=== PATIENT | female | born 1945 | race Caucasian/White ===

== ENCOUNTER → 2016-08-12 | Outpatient (CLI) | payer OTHER ==
[~2016-08-12] MED LIST: ACETAMINOPHEN PO; AMLODIPINE BESYL5 MG PO; DOCUSATE SODIU100 MG PO; EPIPEN0.3 MG/0.1 IM; EVISTA60 MG PO; FLAGYL PO; FLAX SEED OIL1000 M2 PO; FLEXERIL10 MG PO; FUROSEMIDE40 MG PO; HCTZ PO; HYDROCHLOROTHIA25 MG PO; KCL PO; LEVAQUIN PO; LOPID600 MG PO; LOPROX90 GM TOP; MEDI-PATCH WIT1 EACH TOP; MICRO-K PO; MICRO-K10 ME2 PO; MULTIPLE VITAM1 EAC1 PO; PERCOCET5/325 PO; POTASSIUM CHLO10 MEQ PO; PREMARIN0.3 MG PO; PROBIOTIC1 EAC1 PO; PROTONIX PO; TOPROL XL PO; TOPROL XL50 MG PO; TRAMADOL HCL50 M2 PO; TYLENOL325 M1 PO; VIT B-12 PO; VIT B12; VITAMIN D2000 UNIT PO; VOLTAREN75 MG PO; ZETIA PO
--- NOTE | ~2016-08-12 | MR113 ---
[facility] A Service of [facility] RADIOLOGY TEXT RESULTS PATIENT: PATRICIA KHAN LOCATION: [facility] : [birth year] UNIT #: [id number] AGE: [address]: Martinez Celestin MD SEX: F ORDER DR: [id number] [facility] [address] [place], [place] [address] [id number] O MR#: [id number] Acc #: [id number] NAME: PATRICIA KHAN. : 1945 SEX: F STUDY DATE/TIME: 08/12/2016 9:24 UNIT: [facility] ROOM: STUDY DESCRIPTION: MR Lumbar Wo Contrast Attending Physician: Martinez Celestin M.D. Referring Physician: Martinez Celestin M.D. Ordering Physician: Martinez Celestin M.D. Primary Care Physician: Martinez Celestin M.D. MRI CENTER REPORT This report is preliminary unless electronic signature is present. EXAM Lumbar spine MRI without contrast. DATE OF STUDY 08/12/2016 COMPARISON STUDIES Images from a CT abdomen and pelvis dated 03/23/2014. PROCEDURE Routine unenhanced lumbar spine MRI. CLINICAL HISTORY Low-back pain for 4 years. No leg pain. FINDINGS There is a grade 1 anterolisthesis at 4-5 and at 5-1. There is no convincing pars defect at either level. There is degenerative marrow signal change around the 5-1 disc, but bone marrow signal is otherwise normal. Alignment appears unchanged when compared to the CT abdomen and pelvis of 03/23/2014. The distal cord and conus are normal in position and appearance and the paraspinous tissues are unremarkable. At 1-2, there is no canal or foraminal stenosis. At 2-3, slight discogenic and facet degenerative change but no canal stenosis and borderline if any bilateral foraminal narrowing. At 3-4, there is disc and endplate change and facet arthropathy. There is mild canal narrowing and bpspskaiqy-ma-noad right and mild left foraminal narrowing. [facility] A Service of [facility] RADIOLOGY TEXT RESULTS PATIENT: PATRICIA KHAN LOCATION: [facility] : [birth year] UNIT #: [id number] AGE: [address]: Martinez Celestin MD SEX: F ORDER DR: At 4-5, there is anterolisthesis, pseudodisc bulge, facet arthropathy, and mild canal stenosis, and mild to ntbf-di-kocmersb right and mild left foraminal stenosis. At 5-1, there is no canal stenosis but there is moderate right and txkbcyma-bw-tehdcv left foraminal distortion and narrowing. IMPRESSION Degenerative anterolisthesis at 4-5 and 5-1. There is no change in alignment since the CT of 03/23/2014. There are some areas of degenerative foraminal narrowing, see above for eqpnf-iz-jlaxo details. Dictated by... Filemon Mckenna M.D. THIS IS AN ELECTRONICALLY VERIFIED REPORT Filemon Mckenna M.D. at 08/17/2016 3:28 PM SANGEETA/dallin TD: 08/12/2016 16:53 JOB #: [id number] MRI CENTER REPORT Page 1 of 1 COPY
== END | disposition home or self-care (01) ==
LOC: CMRI 08:53
DX: M43.10 Spondylolisthesis, site unspecified (principal); M43.16 Spondylolisthesis, lumbar region; M48.06 Spinal stenosis, lumbar region; M99.83 Other biomechanical lesions of lumbar region
CPT/HCPCS: 72148

== ENCOUNTER → 2016-12-04 | Outpatient (CLI) | payer OTHER ==
[2016-12-04 13:11] LABS: HEMOGLOBIN 13.7 gm/dL (12.0-16.0); MEAN CELL VOLUME 85.9 FL (83-96); MEAN PLATELET VOLUME 7.4 FL (6.5-11.5); RED BLOOD COUNT 4.43 X10e (3.90-5.30); RED CELL DISTRIBUTION WIDTH 12.3 % (11.0-15.5); WHITE BLOOD COUNT 3.4 X10e3 (4.0-10.5)
[2016-12-04 13:47] LABS: BUN/CREATININE RATIO 32.85; CREATININE SERUM 0.7 mg/dL (0.6-1.4); GLOM FILT RATE Estimated 88.4 mL/min (>60); POTASSIUM 3.6 mmol/L (3.5-5.1)
== END | disposition home or self-care (01) ==
LOC: CAMB 12:31
PROVIDERS: Surgery
DX: Z01.812 Encounter for preprocedural laboratory examination (principal); K43.9 Ventral hernia without obstruction or gangrene
CPT/HCPCS: 36415; 80048; 85027

== ENCOUNTER → 2016-12-11 | Day surgery (SDC) | payer OTHER ==
--- NOTE | ~2016-12-11 | OR ---
Unit #: [id number] #: [id number] Patient: PATRICIA KHAN [id number] [address] [place], [place] [address] [id number] O MR#: [id number] NAME: PATRICIA KHAN. ROOM: Date of Procedure: 12/11/2016 Admission Date: 12/11/2016 Surgeon: Theo Garza M.D. : 1945 Attending Physician: Theo Garza M.D. Primary Care Physician: Martinez Celestin M.D. OPERATIVE REPORT PREOPERATIVE DIAGNOSIS Incarcerated incisional hernia measuring 18 cm x 10 cm. POSTOPERATIVE DIAGNOSIS Incarcerated incisional hernia measuring 18 cm x 10 cm. PROCEDURE PERFORMED Laparoscopic ventral hernia repair with 8 inch x 10 inch Ventralight mesh. PHARMACY ANCILLARY Rolf Martniez M.D. ANESTHESIA General anesthesia. TOTAL OPERATIVE TIME 42 minutes. COMPLICATIONS None. INDICATIONS FOR PROCEDURE The patient is a 71-year-old lady with complex incisional hernia. She presents for laparoscopic ventral hernia repair of incarcerated incisional hernia. DESCRIPTION OF PROCEDURE The patient was taken to the operating theater and placed in supine position. General anesthesia was induced. Her abdomen was prepped and draped. A 5-mm Optiview trocar was placed in the left upper quadrant without difficulty. The abdomen was insufflated to 15 mmHg with CO2. Under direct vision, I placed left lower quadrant 10 mm, right upper quadrant 5 mm, right lower quadrant 5 mm. The patient was found to have a complex incarcerated ventral hernia as mentioned. There were multiple adhesions with bowel adhered directly to the hernia sac. This was taken down with combination of sharp and blunt dissection. I then used an 8 x 10 inch Ventralight mesh. This was placed in position and held using single-stranded Vicryl sutures and delivered transcutaneous. This covered the defect by at least 5 cm in all circumference. This was secured with a SorbaFix Tacker with each tack being 1.5 cm from previous tack. I did 2 circumferential rows. Hemostasis was adequate. The ports were removed under direct vision and the wound was closed with 4-0 Vicryl. The sutures Unit #: [id number] #: [id number] Patient: PATRICIA KHAN were cut at skin level. The patient tolerated the procedure well, sent to recovery room in good condition. Dictated by... David Knight/marvin TD: 12/11/2016 13:57 JOB #: [id number] OPERATIVE REPORT Page 1 of 1 X Theo Garza MD X PROCEDURE OPERATIVE NOTE
== END | disposition home or self-care (01) ==
LOC: CSUR 05:38
DX: K43.0 Incisional hernia with obstruction, without gangrene (principal); M51.36 Other intervertebral disc degeneration, lumbar region; I10 Essential (primary) hypertension; E78.00 Pure hypercholesterolemia, unspecified; E78.5 Hyperlipidemia, unspecified; M19.90 Unspecified osteoarthritis, unspecified site; Z90.710 Acquired absence of both cervix and uterus; Z90.49 Acquired absence of other specified parts of digestive tract; Z88.2 Allergy status to sulfonamides; Z88.8 Allergy status to other drugs, medicaments and biological substances; Z86.2 Personal history of diseases of the blood and blood-forming organs and certain disorders involving the immune mechanism; Z79.899 Other long term (current) drug therapy; Z79.52 Long term (current) use of systemic steroids
CPT/HCPCS: C1781; J0330; J0690; J1100; J2250; J2405; J2710; J3010; J3370